=== PATIENT | female | born 1955 | race Caucasian/White ===

== ENCOUNTER → 2023-08-02 12:49 | Outpatient (REF) | payer MEDICARE, OTHER, SELFPAY | LOC: HWRAD 12:49 | PROVIDERS: ATTENDING PHYSICIAN Nurse Practitioner; FAMILY PHYSICIAN Family Medicine | DX: R35.0 Frequency of micturition (principal) | CPT/HCPCS: 76770 ==

== ENCOUNTER → 2023-09-06 07:18 | Outpatient (REF) | payer MEDICARE, OTHER, SELFPAY ==
[2023-09-06 08:59] LABS: Hematocrit 40.6 % (37.0-47.0); Hemoglobin 13.9 g/dL (12.0-16.0); Mean Corp Hgb Conc. 34.2 g/dL (33.0-37.0); Mean Corpuscular Hgb 32.3 pg (27.0-31.0); Mean Corpuscular Volume 94.2 fL (81.0-99.0); Mean Platelet Volume 9.6 fL (7.4-10.4); Platelet Count 182 10^3/uL (130-400); Red Blood Cell Count 4.31 10^6/uL (4.20-5.40); Red Cell Dist. Width 11.9 % (11.5-14.5); White Blood Cell Count 4.1 10^3/uL (4.8-10.8)
[2023-09-06 09:33] LABS: Blood Urea Nitrogen 18 mg/dl (7-17); Calcium 9.6 mg/dl (8.4-10.2); Carbon Dioxide 27 mmol/L (22-30); Chloride 105 mmol/L (98-107); Glucose 108 mg/dl (70-99); Sodium 142 mmol/L (135-145); eGFR > 60.00
[2023-09-06 10:31] LABS: Potassium 4.3 mmol/L (3.5-5.1)
== END ==
LOC: SDSPAT 07:18
PROVIDERS: ATTENDING PHYSICIAN Obstetrics & Gynecology; FAMILY PHYSICIAN Family Medicine
DX: Z01.818 Encounter for other preprocedural examination (principal)
CPT/HCPCS: 36415; 80048; 85027; 86850; 86900; 86901; 93005

== ENCOUNTER 2023-09-18 06:35 | Day surgery (SDC) | payer MEDICARE, OTHER, SELFPAY ==
--- NOTE | 2023-09-04 10:59 | CM ---
Patient is scheduled for a robotic supracervical hysterectomy and robotic sacrocolpopexy on 09/19/23. Spoke with patient prior to surgery via telephone to complete case management assessment and assess for discharge planning needs. Patient reports
that she lives with her in a two story home. There are six steps to enter and a flight of steps to the second floor. There is a full bathroom on the first floor. She currently functions independently. She has a rolling walker from prior TKR
surgery. She has had VN services through [facility]. She has a prescription plan and uses [facility] in [place].
PCP is Jean-Paul Bates
Discussed discharge plans. Patient plans to return home at discharge. She will have support from her when she goes home. She has no discharge planning concerns at this time and does not feel she will need VN services.
[2023-09-06 07:35] VITALS: BMI 25.9
[2023-09-18] VITALS (12 sets, daily range): BP systolic 132–172; BP diastolic 63–85; BMI 25.9
[2023-09-18] MEDS: NORMOSOL-R 1000 IV (07:40)
[2023-09-18] MEDS: HEPARIN 5000 UNITS SC (08:01)
[2023-09-18] MEDS: Pyridium 200 MG PO (08:01)
[2023-09-18] MEDS: DILAUDID 0.5 MG IV (12:29)
[2023-09-18] MEDS: DILAUDID 0.25 MG IV (12:59)
[2023-09-18] MEDS: MOTRIN 600 MG PO (14:06)
[2023-09-18] MEDS: ROXICODONE 5 MG PO (15:11)
== END 2023-09-18 16:30 | disposition home or self-care (01) ==
LOC: SDS 06:35
PROVIDERS: ATTENDING PHYSICIAN Obstetrics & Gynecology; FAMILY PHYSICIAN Family Medicine
DX: N81.2 Incomplete uterovaginal prolapse (principal); N39.3 Stress incontinence (female) (male); N32.81 Overactive bladder; N36.41 Hypermobility of urethra; D25.9 Leiomyoma of uterus, unspecified
CPT/HCPCS: 57425; 58542; 57250; 57288; 88305; 86900; 86901; C1763; C1771

== ENCOUNTER → 2024-03-20 14:56 | Outpatient (REF) | payer MEDICARE, OTHER, SELFPAY | LOC: HWWDC 14:56 | PROVIDERS: ATTENDING PHYSICIAN Family Medicine | DX: Z12.31 Encounter for screening mammogram for malignant neoplasm of breast (principal) | CPT/HCPCS: 77063; 77067 ==